=== PATIENT | male | born 1975 | race Caucasian/White ===

== ENCOUNTER 2017-06-23 11:51 | Outpatient (RCR) | payer MEDICAID, SELFPAY ==
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
--- NOTE | 2017-10-20 08:54 | HP.OT.NRP ---
HP - Discharge Summary - Patient Information MORENA CASTELLANOS was seen in my office for initial evaluation on 06/23/17. The following Plan of Care was established for this patient: Initial Frequency: Every Other Week Initial Duration: 6 Weeks - Anticipated Interventions Anticipated Interventions: A/AAROM/PROM, Strengthening, Triggerpoint Release, Wound Care, Modalities, Orthoses This patient was last seen in our office 06/23/17. Pertinent comments regarding their Occupational therapy will appear below: pt was seen for intial eval only. pt has not scheduled any follow up apts. and is D/C at this time due to non attendence At this point I will be discontinuing this patient from occupational therapy. I would be happy to see this patient again in the future if found appropriate by the physician. Thank you! Genna Starr, OTR/L, CHT
== END 2017-06-23 19:00 | disposition home or self-care (01) ==
LOC: OT 11:51
DX: S62.616D Displaced fracture of proximal phalanx of right little finger, subsequent encounter for fracture with routine healing (principal); M25.641 Stiffness of right hand, not elsewhere classified
CPT/HCPCS: 97166; 97760

== ENCOUNTER 2019-03-20 09:06 | Emergency (ER) | payer MEDICAID, SELFPAY ==
[2019-03-20 09:07] VITALS: BP 125/75; PULSE 76; RESP 18; TEMP 37; O2SAT 99; BMI 27.1
--- NOTE | 2019-03-20 09:27 | CT_ITS ---
STUDY: CT ABDOMEN AND PELVIS WITHOUT CONTRAST REASON FOR EXAM: Male, 43 years old. Abdominal pain RADIATION DOSAGE (If Supplied By Facility): CTDIvol = ( 8.20 ) mGy, DLP = ( 454.84 ) mGycm TECHNIQUE: Transaxial images were obtained from the dome of the diaphragm to the symphysis pubis without oral contrast, and without intravenous contrast. Sagittal and coronal images were reconstructed. Individualized dose optimization techniques were used for this CT. COMPARISON: None. FINDINGS: The visualized lung bases are unremarkable. The visualized portions of the heart are within normal limits. Normal liver. Normal gallbladder and extrahepatic biliary system. Normal spleen. Normal pancreas. Normal bilateral adrenal glands. Normal right kidney. Normal left kidney. Normal visualized stomach. Normal small intestine. Normal colon. The appendix is visualized and appears normal. Normal abdominal aorta. Normal inferior vena cava. Normal retroperitoneum. Normal urinary bladder. Small bilateral anal hernias containing fat. There are diffuse degenerative changes of the visualized lumbar spine. CT/Abdomen/Pelvis without Cont IMPRESSION: Normal unenhanced CT of the abdomen and pelvis. Electronically Signed: Cordell Amaya MD at 11:12 EDT Tel , Service support ,
[2019-03-20 09:48] LABS: Absolute Lymphocyte Count 2.95 X10^3/uL (0.83-4.51); Absolute Neutrophil Count 5.3 X10^3/uL (2.0-7.7); Basophil# 0.07 X10^3/uL; Basophil% 0.7 % (0-1); Eosinophil# 0.14 X10^3/uL; Eosinophils% 1.5 % (0-5); Hematocrit 45.9 % (40-54); Hemoglobin 14.7 g/dL (13.0-16.5); Lymphocyte # 2.95 X10^3/ul (4.0); Lymphocyte % 31.5 % (19-41); Mean Corpuscular Hgb 27.7 pg (27.0-32.0); Mean Corpuscular Volume 86.4 fL (80-94); Mean Platelet Vol. 9.1 fl (6.2-12.0); Monocyte# 0.84 X10^3/uL; NRBC Flagged by Analyzer 0 % (0-5); Neutrophil # 5.32 X10^3/uL (2.7-7.7); Neutrophil % 56.9 % (47-70); Platelet Count 239 K/mm3 (150-450); RBC Distribution Width CV 13.3 % (11.6-14.6); RBC Distribution Width SD 42.3 fl (35.1-43.9); Red Blood Count 5.31 M/mm3 (4.6-6.2); White Blood Count 9.4 K/mm3 (4.4-11.0)
[2019-03-20 10:02] LABS: Anion Gap 3 (5-15); BUN 13 mg/dL (7-18); BUN/Creat Ratio 13.1 RATIO (10-20); Calcium,Total 9.8 mg/dL (8.5-10.1); Chloride 107 mmol/L (98-107); EST Glomerular Filtration Rate 87 mL/min (>60); Est Glom Filt Rate - Afr Amer 105 mL/min (>60); Estimated Creatinine Clearance 104.54 ml/min; Glucose 99 mg/dL (74-106); Potassium 4.4 mmol/L (3.5-5.1); Sodium Level 142 mmol/L (136-145)
[2019-03-20] MEDS: 0.9% Normal Saline 1,000 ML 125 ML IV (10:33)
[2019-03-20] MEDS: Ondansetron 4 MG/2 ML Vial IV (10:33)
[2019-03-20] MEDS: Morphine 4 MG/ML Syringe IV (10:33)
[2019-03-20] MEDS: Ketorolac 30 MG/ML Syringe IV (10:33)
[2019-03-20 10:35] LABS: Bacteria 0 SEEN /hpf (None Seen); Mucous, Urine 0 SEEN /hpf (<or=2+); Red Blood Cells-Urine 0 SEEN /hpf (0-5); Squamous Epithelial Cells - UA 0 SEEN /hpf (0-5); White Blood Cells 0 SEEN /hpf (0-5)
[2019-03-20 10:38] LABS: Color, Urine Yellow (Yellow); Glucose, Dipstick Normal (Normal); Ketone-Dipstick Negative (Negative); Leukocyte Esterase-Dipstick Negative /ul (Negative); Nitrite-Dipstick Negative (Negative); Occult Blood-Urine Negative /ul (Negative); Protein-Dipstick Negative (Negative); Specific Gravity, Urine 1.015 (1.002-1.030); Urine Bilirubin Dipstick Negative (Negative); Urine Clarity Sl. Cloudy (Clear); Urine Urobilinogen Normal (Normal)
[2019-03-20 10:43] LABS: Amorphous Sediment 2+
--- NOTE | 2019-03-20 11:25 | ED.VISSUMM ---
- ER Visit Summary Date of Service: 03/20/19 Chief Complaint: [Left flank pain] History of Present Illness: The patient is a 43 M [presents to the emergency department with complaint of pain in his left back that oftentimes will radiate to the front of the left thigh. Patient states the pain came on suddenly about 2 days ago while he was mowing the lawn. Patient was using a push mower at the time. He denies any trauma to his back. Patient also complains of intermittent severe pain in his left leg that can makes his leg want to buckle. Patient also complains of feeling like he needs to urinate frequently but only urinating small amounts. Patient states pain is worse with certain movements. He denies any loss of bowel or bladder function. He denies weakness in the extremity. Denies saddle anesthesia. Patient has had prior back issues like this.] Physical Examination: [HEENT-PERRLA, EOMI. Cranial nerves II through XII grossly intact. TMs clear. Mucous membranes moist. No adenopathy. Cardiovascular-regular rate and rhythm without murmur or ectopy Lungs-clear to auscultation, chest wall stable without crepitus or subcu emphysema Abdomen-normoactive bowel sounds, soft, nontender, no rebound or rigidity, no peritoneal signs. Back exam-patient has tenderness over the left flank on percussion. Patient also some tenderness over the left lumbar paraspinal musculature. He has negative straight leg raises. Deep tendon reflexes are plus 2 out of 4 bilaterally at the patella and Achilles. Patient has normal 5 extension bilaterally. Patient has normal strength in both lower cavities. Extremities-intact ?4, normal range of motion, normal pulses, atraumatic] Test Results: [CBC with it was normal. Chemistries normal. Urinalysis normal. CT flank showed nothing acute.] Emergency Department Course and Treatment: [She was medicated with Toradol as well as morphine and Zofran.] Treatment Plan: [As when I suspect likely lumbar radiculopathy. Patient will be given a prescription for Flexeril, Maceo, naproxen. Patient will be given referral to primary care physician for follow-up. Patient advised to return if worsening pain, weakness extremities, change in bowel or bladder function, or conditions worsen anyway.] Disposition: [Discharged home stable condition] Impression: [Lumbar radiculopathy] This note was generated with [employer] dictation software. It may contain incorrect words, spelling, and punctuation that were not noted in review of the chart prior to signing ED Disposition - Plan for ED Patient: Referrals: Luis Morgan MD [Primary Care Provider] -
--- NOTE | 2019-03-20 11:27 | ED.DEP ---
ED Disposition - Plan for ED Patient: Instructions: BACK PAIN w/ SCIATICA Prescriptions: cycloBENZAPRine HCl [Flexeril] 10 mg PO TID PRN #20 tab PRN Reason: Muscle Spasm Prescription Printed Naproxen [Naprosyn] 500 mg PO BID PRN #20 tab Prescription Printed Hydrocodone Bitart/Apap 5-325 [Berthold 5MG-325MG] 1 tab PO Q4H PRN PRN 2 Days #15 tab PRN Reason: Pain Prescription Printed Referrals: Luis Morgan MD [Primary Care Provider] - Reece Mixon MD [STAFF PHYSICIAN] - 5-7 Days
[2019-03-20 11:41] VITALS: BP 127/87; PULSE 78; RESP 18; O2SAT 99
== END 2019-03-20 11:42 | disposition home or self-care (01) ==
LOC: ED 09:52
PROVIDERS: Emergency Provider Emergency Medicine; Family Provider Family Medicine; PCP Family Medicine
DX: M54.16 Radiculopathy, lumbar region (principal); Z72.0 Tobacco use
CPT/HCPCS: 74176; 80048; 81001; 85025; 96361; 96374; 96375; 99283; J7030; A4216; J2405

== ENCOUNTER 2019-04-22 10:56 | Emergency (ER) | payer MEDICAID, SELFPAY ==
[2019-04-22 10:58] VITALS: BP 127/88; PULSE 101; RESP 19; TEMP 37.1; O2SAT 97; BMI 26.4
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
[2019-04-22] MEDS: Acetaminophen 325 MG Tablet 650 MG PO (11:09)
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
--- NOTE | 2019-04-22 12:56 | ED.RN ---
AT 1250 THIS NURSE WENT TO CHECK ON THE PT AND DRESS HIS WOUND BEFORE D/C AND THE ROOM WAS EMPTY. THE PT IS NOT ANYWHERE WITHIN THE DEPARTMENT. PD WANTED TO SPEAK WITH THE PT PRIOR TO HIS LEAVING, HRO OFFICER IS AWARE THE PT LEFT WITHOUT D/C INSTRUCTIONS. LUCIA GIBBONS AND CHARGE NURSE MADE AWARE THAT THE PT LEFT PRIOR TO RECEIVING D/C INSTRUCTIONS AND A WOUND DRESSING.
== END 2019-04-22 12:55 | disposition home or self-care (01) ==
PROVIDERS: Emergency Provider Physician Assistant Medical; Family Provider Family Medicine; PCP Family Medicine
DX: S09.90XA Unspecified injury of head, initial encounter (principal); S61.212A Laceration without foreign body of right middle finger without damage to nail, initial encounter; V89.2XXA Person injured in unspecified motor-vehicle accident, traffic, initial encounter; W22.11XA Striking against or struck by driver side automobile airbag, initial encounter; Y93.89 Activity, other specified; Y92.410 Unspecified street and highway as the place of occurrence of the external cause; F17.200 Nicotine dependence, unspecified, uncomplicated
CPT/HCPCS: 12001; 70450; 73130; 99285

== ENCOUNTER 2019-04-23 17:14 | Emergency (ER) | payer MEDICAID, SELFPAY ==
[2019-04-22 10:58] VITALS: BMI 26.4
[2019-04-23 17:15] VITALS: BP 129/76; PULSE 103; PULSE 104; RESP 16; RESP 18; TEMP 36.4; O2SAT 96; O2SAT 97; BMI 26.7
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
[2019-04-23] MEDS: HYDROcodone Bitartrate/Apap 5/325 Tablet PO (18:30)
== END 2019-04-23 18:45 | disposition home or self-care (01) ==
PROVIDERS: Emergency Provider Emergency Medicine; Family Provider Family Medicine; PCP Family Medicine
DX: S20.211A Contusion of right front wall of thorax, initial encounter (principal); V49.40XA Driver injured in collision with unspecified motor vehicles in traffic accident, initial encounter; Y93.89 Activity, other specified; M25.551 Pain in right hip; F17.200 Nicotine dependence, unspecified, uncomplicated
CPT/HCPCS: 71101; 73502; 99283

== ENCOUNTER 2020-09-17 12:48 | Emergency (ER) | payer MEDICAID, SELFPAY ==
[2020-09-17 12:49] VITALS: BP 126/93; PULSE 83; RESP 17; TEMP 36.7; O2SAT 100; BMI 26.6
[2020-09-17 13:04] VITALS: BMI 26.5
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
--- NOTE | 2020-09-17 13:58 | EKG12_ITS ---
Test Reason : SYNCOPE Blood Pressure : / mmHG Vent. Rate : 063 BPM Atrial Rate : 063 BPM P-R Int : 174 ms QRS Dur : 096 ms QT Int : 372 ms P-R-T Axes : 049 032 054 degrees QTc Int : 380 ms Normal sinus rhythm Low Voltage QRS (Limb Leads) Confirmed by SANFORD FARLEY, LISA ([id number]), market editor ELISEO ROJAS ([id number]) on 09/19/2020 1:47:55 PM Referred By: SHREE Confirmed By:LISA CHRISTINA MD
--- NOTE | 2020-09-17 13:59 | ED.DCSUM_ITS ---
History of Present Illness Chief Complaint: Neuro S/Sx Detail of Chief Complaint: memory loss Informant: Patient, Significant Other Onset: Weeks - about 2 Context: Sudden Onset Timing: Intermittent - many episodes, Lasts - couple minutes each Quality: syncope vs. going to sleep Maximum Severity: Severe Worsened by: unk Relieved by: gentle physical stimulation Associated Symptoms: left eye vision severely blurred Narrative: For about 2 weeks, patient has been having intermittent spells of unresponsiveness that lasted for a couple minutes or until his significant other gently wakes him up. The patient describes this as memory loss, he has no prodromal symptoms and then wakes up not realizing what happened, losing a period of time. He also has had some memory loss from episodes/times when he is awake. He and deny any episodes of this occurring while he was standing or walking; always while sitting or lying down. With gentle physical stimulation he suddenly wakes up. He has had no recent illness or head injury although he has had headaches and severely blurred vision in his left eye for approximately the same time period. He saw an construction foreman concerning this, and was told there was some fluid behind his eye and has an appointment tomorrow with a retinal specialist. Vision in his right eye is normal in all cartwright. Vision in his left eye is blurry in all cartwright. He said he can see light through it but nothing else. Additionally, over the last several months, patient and his significant other have been undergoing relationship issues/divorce. Patient admits that he is sad and very anxious concerning this. He denies any suicidal ideation. Past Medical History - Allergies and Home Meds Allergies/Adverse Reactions: Allergies No Known Allergies Allergy (Verified 09/17/20 12:48) Primary Care Physician: Care Physician,No Primary [Primary Care Provider] - Surgical History: no surgical history Lives: Spouse/ Significant Other Smoking Status: Current every day smoker Drugs: None Review of Systems General: Denies: Chills, Fever, Sweats Eyes: Denies: Visual changes - bilaterally, Diplopia ENT: Denies: Rhinorrhea, Sore throat Cardiovascular: Denies: Chest pain, Palpitations Respiratory: Denies: Dyspnea, Cough, Dyspnea on exertion Gastrointestinal: Denies: Abdominal pain, Nausea, Vomiting, Diarrhea, Melena, Hematochezia Genitourinary: Denies: Dysuria, Hematuria, Frequency Musculoskeletal: Reports: Back pain - Low, intermittent, worse with movement. Denies: Myalgias, Swelling, Extremity Pain Skin: Denies: Rash, Wounds Neurological: Denies: Headache, Weakness, Numbness Psych: Reports: Depression, Anxiety. Denies: Suicidal thoughts, Suicidal ideations Physical Exam Vital Signs/Narrative: Vital Signs Temp Pulse Resp BP Pulse Ox 09/17/20 12:49 98.0 F 83 17 126/93 H 100 Inital Vital Signs reviewed: Yes General: Well nourished, Well developed, No Acute Distress Head: Normocephalic, Atraumatic Eyes: Perrl, EOMI ENT: Moist mucous membranes, No rhinorrhea Neck: Supple, Nontender - And no thyromegaly, No lymphadenopathy Cardiovascular: Regular rate, Regular rhythm, No murmurs. Negative for: Tachycardia, Bradycardia Respiratory: No distress, CTA bilaterally, Chest nontender Abdomen: Soft, Nontender, Nondistended, Normal bowel sounds Back: Nontender, Normal Inspection. Negative for: CVA tenderness Extremities: Nontender, No edema. Negative for: Calf Tenderness Skin: Normal color, No rash, No Trauma Neurological: Alert, Oriented x3, Cranial nerves II-XII grossly intact, Normal Strength, Normal Sensation Psychological: Normal affect, Normal Mood Diagnostic/Tx/Re-eval Impressions Brain CT 09/17/20 14:18 IMPRESSION: Normal unenhanced CT scan of the brain. Electronically Signed: Raymond Yusuf MD at 14:28 EST , Service support , 09/17/20 14:18 Brain/Head without Contrast [CT] Stat Laboratory Results 09/17/20 09/17/20 09/17/20 13:03 13:03 13:03 WBC 13.7 H RBC 6.05 Hgb 16.6 H Hct 52.1 MCV 86.1 MCH 27.4 MCHC 31.9 L RDW Std Deviation 43.5 RDW Coeff of Noel 13.7 Plt Count 339 MPV 8.9 Immature Gran % (Auto) 0.100 Neut % (Auto) 78.2 H Lymph % (Auto) 16.5 L [place] % (Auto) 4.2 Eos % (Auto) 0.4 Baso % (Auto) 0.6 Absolute Neuts (auto) 10.7 H Absolute Lymphs (auto) 2.27 Nucleated RBC % 0 Sodium 141 Potassium 4.0 Chloride 110 H Carbon Dioxide 28.0 Anion Gap 3 L BUN 11 Creatinine 1.07 Estim Creat Clear Calc 95.69 Est GFR (MDRD) Af Amer 96 Est GFR (MDRD) Non-Af 79 BUN/Creatinine Ratio 10.3 Glucose 99 Calcium 8.9 Total Bilirubin 0.20 AST 9 L ALT 28 Alkaline Phosphatase 62 Troponin I < 0.015 Total Protein 7.4 Albumin 4.1 Globulin 3.3 Albumin/Globulin Ratio 1.2 TSH Urine Color Urine Clarity Urine pH Ur Specific [place] Urine Protein Urine Glucose (UA) Urine Ketones Urine Occult Blood Urine Nitrite Urine Bilirubin Urine Urobilinogen Ur Leukocyte Esterase Urine RBC Urine WBC Ur Squamous Epith Cells Urine Bacteria Urine Mucus Urine Opiates Screen Urine Methadone Screen Ur Barbiturates Screen Ur Phencyclidine Scrn Ur Amphetamines Screen U Methamphetamin-MDMA U Benzodiazepines Scrn Urine Cocaine Screen U Cannabinoids Screen Ur Drug Screen Comment Ethyl Alcohol < 3.0 09/17/20 09/17/20 09/17/20 13:03 14:30 14:30 WBC RBC Hgb Hct MCV MCH MCHC RDW Std Deviation RDW Coeff of Noel Plt Count MPV Immature Gran % (Auto) Neut % (Auto) Lymph % (Auto) [place] % (Auto) Eos % (Auto) Baso % (Auto) Absolute Neuts (auto) Absolute Lymphs (auto) Nucleated RBC % Sodium Potassium Chloride Carbon Dioxide Anion Gap BUN Creatinine Estim Creat Clear Calc Est GFR (MDRD) Af Amer Est GFR (MDRD) Non-Af BUN/Creatinine Ratio Glucose Calcium Total Bilirubin AST ALT Alkaline Phosphatase Troponin I Total Protein Albumin Globulin Albumin/Globulin Ratio TSH 1.03 Urine Color Yellow Urine Clarity Clear Urine pH 6.5 Ur Specific [place] 1.015 Urine Protein Negative Urine Glucose (UA) Normal Urine Ketones 5 H Urine Occult Blood 10 H Urine Nitrite Negative Urine Bilirubin Negative Urine Urobilinogen Normal Ur Leukocyte Esterase 25 H Urine RBC 0-5 SEEN Urine WBC 0-5 SEEN Ur Squamous Epith Cells 0 SEEN Urine Bacteria 0 SEEN Urine Mucus 0 SEEN Urine Opiates Screen NEGATIVE Urine Methadone Screen NEGATIVE Ur Barbiturates Screen NEGATIVE Ur Phencyclidine Scrn NEGATIVE Ur Amphetamines Screen NEGATIVE U Methamphetamin-MDMA NEGATIVE U Benzodiazepines Scrn NEGATIVE Urine Cocaine Screen NEGATIVE U Cannabinoids Screen POSITIVE H Ur Drug Screen Comment Ethyl Alcohol - Rhythm Strip Rhythm Strip: Sinus Rhythm Rate: 60 Ectopy: None - EKG Initial EKG Interpretation: Sinus Rhythm, No Acute Injury Pattern - Normal EKG - Medical Decision Making I had to exit the room during the interview and when I came back, the patient was lying in bed sleeping with normal unchanged vital signs. I gently tapped him on the shoulder and he suddenly woke up, came to and then was able to answer questions appropriately. His significant other who was in the room the whole time said that he was sleeping for about 3 minutes prior to my coming in and this is what he has been doing. Further history suggest that these episodes have been going on for maybe months, maybe a year? I do not know, a long time. His work-up is negative including orthostatics. His head CT is negative. He is currently getting worked up by ophthalmology for his left eye vision issues. Differential for these episodes includes psychologic diagnoses including narcolepsy. Advised to follow-up with his primary care doctor. He states that he just saw someone with the [facility] here locally, he does not member the name, but states that he should be able to establish with them as a new patient. ED Disposition - Plan for ED Patient: Disposition: Home or Assisted Living Diagnosis: Recurrent hypersomnia, Blurry vision, left eye Instructions: What Is Narcolepsy? Referrals: Doctor,Your [STAFF PHYSICIAN] - (call for appt and refer them to medical tests performed today at [facility])
--- NOTE | 2020-09-17 14:18 | CT_ITS ---
STUDY: CT BRAIN WITHOUT CONTRAST REASON FOR EXAM: Male, 45 years old. HEADACHE LEFT VISION LOSS RADIATION DOSAGE (If Supplied By Facility): CTDIvol = ( 44.99 ) mGy, DLP = ( 796.11 ) mGycm TECHNIQUE: Transaxial CT imaging of the brain was performed without administration of intravenous contrast material. Individualized dose optimization techniques were used for this CT. COMPARISON: Comparison is made with prior study dated 04/22/2019. FINDINGS: Normal soft tissue structures. Normal calvarium. Normal size ventricles and extra-axial spaces for the patient''s age. Normal white matter tracts of the cerebral hemispheres. Normal basal ganglia and thalami. Normal brainstem. Normal cerebellum. There is no intracranial hemorrhage. There are no findings of an acute ischemic infarction. Normal visualized paranasal sinuses. CT/Brain/Head without Contrast IMPRESSION: Normal unenhanced CT scan of the brain. Electronically Signed: Raymond Yusuf MD at 14:28 EST , Service support ,
[2020-09-17 14:30] LABS: Absolute Lymphocyte Count 2.27 X10^3/uL (0.83-4.51); Absolute Neutrophil Count 10.7 X10^3/uL (2.0-7.7); Basophil# 0.08 X10^3/uL; Basophil% 0.6 % (0-1); Eosinophil# 0.05 X10^3/uL; Eosinophils% 0.4 % (0-5); Hematocrit 52.1 % (40-54); Hemoglobin 16.6 g/dL (13.0-16.5); Lymphocyte # 2.27 X10^3/ul (4.0); Lymphocyte % 16.5 % (19-41); Mean Corp Hgb Conc 31.9 g/dL (32-36); Mean Corpuscular Hgb 27.4 pg (27.0-32.0); Mean Corpuscular Volume 86.1 fL (80-94); Mean Platelet Vol. 8.9 fl (6.2-12.0); Monocyte# 0.58 X10^3/uL; Monocyte% 4.2 % (0-10); NRBC Flagged by Analyzer 0 % (0-5); Neutrophil # 10.73 X10^3/uL (2.7-7.7); Neutrophil % 78.2 % (47-70); Platelet Count 339 K/mm3 (150-450); RBC Distribution Width CV 13.7 % (11.6-14.6); RBC Distribution Width SD 43.5 fl (35.1-43.9); Red Blood Count 6.05 M/mm3 (4.6-6.2); White Blood Count 13.7 K/mm3 (4.4-11.0)
[2020-09-17 14:37] LABS: Bacteria 0 SEEN /hpf (None Seen); Mucous, Urine 0 SEEN /hpf (<or=2+); Squamous Epithelial Cells - UA 0 SEEN /hpf (0-5)
[2020-09-17 14:38] LABS: Color, Urine Yellow (Yellow); Glucose, Dipstick Normal (Normal); Ketone-Dipstick 5 mg/dl (Negative); Leukocyte Esterase-Dipstick 25 /ul (Negative); Nitrite-Dipstick Negative (Negative); Occult Blood-Urine 10 /ul (Negative); Protein-Dipstick Negative (Negative); Specific Gravity, Urine 1.015 (1.002-1.030); Urine Bilirubin Dipstick Negative (Negative); Urine Clarity Clear (Clear); Urine Urobilinogen Normal (Normal); Urine pH 6.5 (5.0 - 8.0)
[2020-09-17 14:44] LABS: Alcohol, Blood (Medical)-Serum < 3.0 mg/dL
[2020-09-17 14:44] LABS: Red Blood Cells-Urine 0-5 SEEN /hpf (0-5); White Blood Cells 0-5 SEEN /hpf (0-5)
[2020-09-17 14:50] LABS: ALB/GLOB Ratio 1.2 RATIO (0.9-2.4); AST(SGOT) 9 U/L (15-37); Alanine Aminotransfer ALT/SGPT 28 U/L (16-61); Albumin, Serum 4.1 g/dL (3.2-5.0); Alkaline Phosphatase 62 U/L (45-117); Anion Gap 3 (5-15); BUN 11 mg/dL (7-18); BUN/Creat Ratio 10.3 RATIO (10-20); Calcium,Total 8.9 mg/dL (8.5-10.1); Chloride 110 mmol/L (98-107); Creatinine, Serum 1.07 mg/dL (0.70-1.30); EST Glomerular Filtration Rate 79 mL/min (>60); Est Glom Filt Rate - Afr Amer 96 mL/min (>60); Estimated Creatinine Clearance 95.69 ml/min; Globulin 3.3 g/dL (2.2-4.2); Glucose 99 mg/dL (74-106); Protein, Total 7.4 g/dL (6.4-8.2); Sodium Level 141 mmol/L (136-145)
[2020-09-17 14:58] LABS: Amphetamine Urine VISTA NEGATIVE (<1000 ng/mL); Barbiturate Urine VISTA NEGATIVE (< 200 ng/mL); Benzodiazepine Urine VISTA NEGATIVE (< 200 ng/mL); Cocaine Urine VISTA NEGATIVE (< 300 ng/mL); Ecstacy Urine VISTA NEGATIVE (< 500 ng/mL); Methadone Urine VISTA NEGATIVE (< 300 ng/mL); PCP Urine VISTA NEGATIVE (< 25 ng/mL); THC Urine VISTA POSITIVE (< 50 ng/mL); Vista UDS pH Range 6
[2020-09-17 15:04] VITALS: BP 120/97; BP 125/81; BP 130/98; PULSE 67; PULSE 77; PULSE 81
[2020-09-17 15:05] LABS: Thyroid Stim Hormone (TSH) 1.03 uIU/mL (0.358-3.74)
[2020-09-17 15:51] VITALS: BP 132/74; PULSE 72; RESP 16; O2SAT 98
== END 2020-09-17 15:51 | disposition home or self-care (01) ==
PROVIDERS: Emergency Provider Emergency Medicine
DX: G47.13 Recurrent hypersomnia (principal); H53.8 Other visual disturbances; F17.200 Nicotine dependence, unspecified, uncomplicated
CPT/HCPCS: 70450; 80053; 80307; 81001; 82077; 84443; 84484; 85025; 93005; 99285; A4216

== ENCOUNTER 2024-04-17 10:21 | Emergency (ER) | payer MEDICAID, SELFPAY ==
[2024-04-17 10:22] VITALS: BP 99/78; PULSE 76; RESP 16; TEMP 36.6; O2SAT 98; BMI 27.3
[2024-04-17 11:03] LABS: Anion Gap 7 (5-15); BUN 16 mg/dL (7-18); Chloride 105 mmol/L (98-107); Creatinine, Serum 1.14 mg/dL (0.70-1.30); EST Glomerular Filtration Rate 73 mL/min (>60); Est Glom Filt Rate - Afr Amer 88 mL/min (>60); Estimated Creatinine Clearance 86.03 ml/min; Glucose 92 mg/dL (74-106); Potassium 3.8 mmol/L (3.5-5.1); Sodium Level 141 mmol/L (136-145)
[2024-04-17 11:06] LABS: Absolute Neutrophil Count 4.5 X10^3/uL (2.0-7.7); Basophil# 0.07 X10^3/uL; Basophil% 0.8 % (0-1); Eosinophil# 0.13 X10^3/uL; Eosinophils% 1.6 % (0-5); Hematocrit 43.8 % (40-54); Hemoglobin 13.7 g/dL (13.0-16.5); Lymphocyte % 32.8 % (19-41); Mean Corp Hgb Conc 31.3 g/dL (32-36); Mean Corpuscular Hgb 26.7 pg (27.0-32.0); Mean Corpuscular Volume 85.4 fL (80-94); Mean Platelet Vol. 8.9 fl (6.2-12.0); Monocyte# 0.82 X10^3/uL; NRBC Flagged by Analyzer 0 % (0-5); Neutrophil % 54.6 % (47-70); Platelet Count 332 K/mm3 (150-450); RBC Distribution Width CV 13.6 % (11.6-14.6); RBC Distribution Width SD 42.5 fl (35.1-43.9); Red Blood Count 5.13 M/mm3 (4.6-6.2); White Blood Count 8.2 K/mm3 (4.4-11.0)
[2024-04-17 11:41] LABS: Bacteria 0 SEEN /hpf (None Seen); Red Blood Cells-Urine 0 SEEN /hpf (0-5); Squamous Epithelial Cells - UA 0 SEEN /hpf (0-5); White Blood Cells 0 SEEN /hpf (0-5)
[2024-04-17 11:43] LABS: Color, Urine Yellow (Yellow); Glucose, Dipstick Normal (Normal); Ketone-Dipstick Negative (Negative); Leukocyte Esterase-Dipstick Negative /ul (Negative); Nitrite-Dipstick Negative (Negative); Occult Blood-Urine Negative /ul (Negative); Protein-Dipstick 30 mg/dl (Negative); Specific Gravity, Urine 1.025 (1.002-1.030); Urine Bilirubin Dipstick Negative (Negative); Urine Clarity Clear (Clear); Urine Urobilinogen 1 mg/dl (Normal)
--- NOTE | 2024-04-17 11:44 | EDS_ITS ---
HPI History of Present Illness Chief Complaint: Edema Detail of Chief Complaint: Patient sent from urgent care to rule out DVT Informant: patient Onset/Context/Timing Onset: Today (Patient states this morning his feet were swollen. He did not notice the swelling prior to today.) Context: Sudden Onset Timing: Continuous Quality: Edema Location: Feet and anterior distal right and left leg Current Severity: Moderate Maximum Severity: Moderate Worsened by: Nothing per patient Relieved by: Nothing Associated Symptoms Associated Symptoms: No associated symptoms Narrative Narrative: Patient 49-year-old male no sniffing past medical history. 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 He is on his feet a lot. He states prior to this morning he has not noticed any swelling. Patient denies chest pain. Patient denies orthopnea or PND. Patient denies history of PE or DVT. Patient has no risk factors for PE or DVT. Patient denies calf pain or thigh pain. Patient denies cough, shortness of breath, fever or chills. Prior similar symptoms: No Recent Illness/Hospitalization: No PFSH PFSH Medical History no medical history no medical history Home Medications ?Medication ?Instructions ?Recorded ?Last Taken ?Type cyclobenzaprine 10 mg tablet 10 mg PO TID PRN Muscle Spasm #20 03/20/19 Unknown Rx tabs naproxen 500 mg tablet 500 mg PO BID PRN #20 tabs 03/20/19 Unknown Rx Allergy/AdvReac Type Severity Reaction Status Date / Time No Known Allergies Allergy Verified 04/17/24 10:22 Surgical History no surgical history no surgical history Social History Smoking Status: Current every day smoker tobacco type: cigarettes ROS ROS ED Constitutional Constitutional ED: Denies chills, fever(s) or subjective Eyes Eyes: Denies blurry vision or change in vision ENT ENT ED: Denies rhinorrhea or sore throat Cardiovascular Cardiovascular: Denies chest pain, orthopnea, palpitations, paroxysmal nocturnal dyspnea or racing heartbeat Respiratory/Chest Respiratory/Chest: Denies cough, dyspnea, dyspnea on exertion, orthopnea or paroxysmal nocturnal dyspnea Gastrointestinal Gastrointestinal: Denies abdominal pain, nausea or vomiting Genitourinary Genitourinary ED: Denies urinary frequency Musculoskeletal Musculoskeletal: Denies back pain Integumentary Reports rash Neurologic Neurologic: Denies paresthesias or weakness Endocrine Endocrinology: Denies cold intolerance or heat intolerance Hematologic/Lymphatic Hematologic/Lymphatic: Reports systems reviewed and no addt'l complaints, except as documented EXAM Physical Exam Const Vital Signs: 04/17/24 10:22 04/17/24 10:22 Temperature 97.8 F Temperature Source Temporal Pulse Rate 76 Respiratory Rate 16 Respiratory Effort Normal Respiratory Pattern Normal Blood Pressure 99/78 Blood Pressure Mean 85 Pulse Ox 98 Oxygen Delivery Method Room Air Positive well nourished and well developed Constitutional Narrative: Pleasant middle-age gentleman appears in no distress. General Appearance ED: well developed and NAD HEENT Reports moist mucous membranes HEENT Narrative: Head is atraumatic normocephalic. Ears normal. Nares patent. Eyes PERRL and EOMs intact bilaterally General Eye ED: Negative for pale conjunctiva or scleral icterus Neck no lymphadenopathy, supple and no JVD Chest Wall inspection of chest normal and palpation of chest normal Resp normal respiratory effort and clear to auscultation bilaterally Cardio regular rate, regular rhythm, S1 normal heart sound, S2 normal heart sound and no murmurs GI normal to inspection, nondistended, normoactive bowel sounds, non-tender, non- distended and no masses; Negative for hepatosplenomegaly Extremity Extremity Narrative: Patient has pitting edema of the dorsum of his foot and anterior distal right and left leg. There is no calf tenderness. There is no asymmetry or discoloration. There is no leg vein distention or palpable cords. There is no pain along the distribution of the deep venous system. Patient's abnormality is his feet and anterior leg. His history and physical is not consistent with DVT. Patient was told in my professional opinion he does not have a DVT. I suspect he has lymphedema. General Extremety ED: Yes edema General Extremity: edema Neuro oriented x3 and CN's II-XII intact bilaterally Sensorium / Orientation: alert Psych mental status grossly normal Skin Skin Narrative: Venous stasis dermatitis MDM MDM MDM Narrative Medical decision making narrative: His history and physical is not consistent with DVT. Patient was told in my professional opinion he does not have a DVT. I suspect he has lymphedema. Will obtain CBC BMP and UA. BMP was obtained to assess renal function. UA to assess for proteinuria. Lab Data Attestation: I reviewed the patient's lab results. Lab results narrative: CBC is normal. BMP is normal. UA is remarkable for mild proteinuria. Labs: Laboratory Results - last 24 hr 04/17/24 04/17/24 10:47 11:32 WBC 8.2 RBC 5.13 Hgb 13.7 Hct 43.8 MCV 85.4 MCH 26.7 L MCHC 31.3 L RDW Std Deviation 42.5 RDW Coeff of Noel 13.6 Plt Count 332 MPV 8.9 Immature Gran % (Auto) 0.200 Neut % (Auto) 54.6 Lymph % (Auto) 32.8 [place] % (Auto) 10.0 Eos % (Auto) 1.6 Baso % (Auto) 0.8 Absolute Neuts (auto) 4.5 Absolute Lymphs (auto) 2.70 Nucleated RBC % 0 Sodium 141 Potassium 3.8 Chloride 105 Carbon Dioxide 29.0 Anion Gap 7 BUN 16 Creatinine 1.14 Estim Creat Clear Calc 86.03 Est GFR (MDRD) Af Amer 88 Est GFR (MDRD) Non-Af 73 BUN/Creatinine Ratio 14.0 Glucose 92 Calcium 9.0 Urine Color Yellow Urine Clarity Clear Urine pH 6.0 Ur Specific [place] 1.025 Urine Protein 30 H Urine Glucose (UA) Normal Urine Ketones Negative Urine Occult Blood Negative Urine Nitrite Negative Urine Bilirubin Negative Urine Urobilinogen 1 H Ur Leukocyte Esterase Negative Discharge Plan Triage Chief Complaint: Edema ED Provider: Malcolm Dawson Dx/Rx/DC Orders Clinical Impression: Lymphedema of both lower extremities, Proteinuria Instructions: ED Peripheral Edema, Bilateral Prescriptions: No Action cyclobenzaprine 10 MG tablet 10 mg PO TID PRN (Reason: Muscle Spasm) Qty: 20 0RF naproxen 500 MG tablet 500 mg PO BID PRN Qty: 20 0RF Primary Care Provider: Care Physician,No Primary Referrals: Care Physician,No Primary [Primary Care Provider] - Doctor,Your [Non-Staff] - 1-2 Weeks Activity Restrictions/Additional Instructions: 1. Recommend wearing compressive knee-high socks. 2. Recommend elevating your feet at bedtime. Print Language: Czech Disposition Disposition: Home, Self Care
[2024-04-17 11:52] LABS: Mucous, Urine 1+ /hpf (<or=2+)
[2024-04-17 12:05] VITALS: BP 109/81; PULSE 76; RESP 16; TEMP 36.6; O2SAT 98
== END 2024-04-17 12:08 | disposition home or self-care (01) ==
PROVIDERS: Emergency Provider Emergency Medicine; Visit Provider Emergency Medicine
DX: I89.0 Lymphedema, not elsewhere classified (principal); R80.9 Proteinuria, unspecified; F17.210 Nicotine dependence, cigarettes, uncomplicated
CPT/HCPCS: 80048; 81001; 85025; 99283; A4216